=== PATIENT | male | born 1960 | race Caucasian/White ===

== ENCOUNTER 2017-06-24 06:13 | Inpatient (IN) ==
[2017-06-24 06:38] LABS: MANUAL DIFF NEEDED? NO
[2017-06-24 06:49] LABS: BASO% 0.1 % (0.0-0.8); EOS# 0.02 X1000 (0.0-0.7); EOS% 0.2 % (0.0-10.0); HEMATOCRIT 43.1 % (42.0-52.0); HEMOGLOBIN 15.6 g/dL (14.0-18.0); LYMPH# 1.09 X1000 (1.2-3.4); LYMPH% 9.4 % (20.5-51.1); MCH 33.9 PG (27-31); MCHC 36.2 g/dL (33-37); MCV 93.7 FL (81-99); MONO# 1.03 X1000 (0.11-0.59); MONO% 8.9 % (1.7-9.3); MPV 9.4 FL (7.4-10.4); NEUT% 81.4 % (42.2-75.2); PLT 179 X1000 (130-400)
[2017-06-24 07:09] LABS: AGAP 20; ALBUMIN 4.3 g/dL (3.5-5.0); ALKALINE PHOSPHATASE 90 U/L (32-122); AMYLASE 41 U/L (20-200); BUN 20 mg/dL (8-22); CALCIUM 9.6 mg/dL (8.8-10.2); CHLORIDE 86 mmol/L (98-107); COSMO 271; GOT 34 U/L (10-34); GPT 33 U/L (10-44); LIPASE 36 U/L (13-60); POTASSIUM 4.1 mmol/L (3.5-5.1); SODIUM 130 mmol/L (136-145); TCO2 24 mmol/L (25-35); TOTAL BILIRUBIN 1.54 mg/dL (0.20-1.00); TOTAL PROTEIN 7.8 g/dL (6.3-8.3)
[2017-06-24] MEDS ORDERED: NS 1,000 ML IV ONE ×2 (08:53→10:02)
[2017-06-24] MEDS ORDERED: ZOFRAN IV ONE (09:32)
[2017-06-24] MEDS ORDERED: MORPHINE IV ONE (09:32)
[2017-06-24] MEDS ORDERED: ZOFRAN IV PRN (10:02)
[2017-06-24] MEDS ORDERED: MORPHINE IV PRN (10:02)
[2017-06-24] MEDS ORDERED: APRESOLINE IV PRN (11:57)
[2017-06-24 13:49] LABS: URINE CULTURE NEEDED? NO; URINE MICRO REVIEW NEEDED? NO; URINE SOURCE CLEAN CATCH
[2017-06-24 13:56] LABS: BILIRUBIN URINE NEGATIVE (NEGATIVE); BLOOD URINE SMALL (NEGATIVE); COLOR YELLOW; GLUCOSE URINE 100 mg/dL (NEGATIVE); LEUKOCYTES URINE NEGATIVE (NEGATIVE); NITRITE URINE NEGATIVE (NEGATIVE); PROTEIN URINE 300 mg/dL (NEGATIVE); SP GRAVITY URINE 1.024; TURBIDITY URINE CLEAR (CLEAR); UROBILINOGEN URINE 2 mg/dL (NORMAL)
[2017-06-24 13:57] LABS: UR EPITHELIAL CELLS <10 /HPF (<10); URINE BACTERIA NEGATIVE /HPF; URINE RBC <10 /HPF (<10); URINE WBC <10 /HPF (<10)
[2017-06-24] MEDS: HUMULIN R SUBQ SCH ×2 (14:00→18:49)
[2017-06-25] MEDS: HUMULIN R SUBQ SCH ×9 (03:26→21:19)
[2017-06-25 06:06] LABS: MANUAL DIFF NEEDED? NO
[2017-06-25 06:11] LABS: BASO% 0.2 % (0.0-0.8); EOS# 0.33 X1000 (0.0-0.7); EOS% 3.7 % (0.0-10.0); HEMATOCRIT 40.1 % (42.0-52.0); HEMOGLOBIN 13.6 g/dL (14.0-18.0); LYMPH# 0.91 X1000 (1.2-3.4); LYMPH% 10.3 % (20.5-51.1); MCH 32.9 PG (27-31); MCHC 33.9 g/dL (33-37); MCV 96.9 FL (81-99); MONO# 0.95 X1000 (0.11-0.59); MONO% 10.8 % (1.7-9.3); MPV 9.1 FL (7.4-10.4); PLT 165 X1000 (130-400); RBC 4.14 XMIL (4.7-6.1)
[2017-06-25 06:40] LABS: AGAP 14; ALBUMIN 3.9 g/dL (3.5-5.0); ALKALINE PHOSPHATASE 84 U/L (32-122); BUN 23 mg/dL (8-22); CALCIUM 8.5 mg/dL (8.8-10.2); CHLORIDE 96 mmol/L (98-107); COSMO 279; GOT 33 U/L (10-34); GPT 29 U/L (10-44); POTASSIUM 3.9 mmol/L (3.5-5.1); SODIUM 136 mmol/L (136-145); TCO2 26 mmol/L (25-35); TOTAL BILIRUBIN 1.53 mg/dL (0.20-1.00); TOTAL PROTEIN 7.8 g/dL (6.3-8.3)
[2017-06-26] MEDS: HUMULIN R SUBQ SCH ×2 (04:16→07:54)
[2017-06-26 07:52] VITALS: BP 165/91
== END 2017-06-26 11:09 | disposition home or self-care (01) ==
LOC: ED 06:13 → SURHOLD 06:14 → 4N 15:35
PROVIDERS: ADMIT Surgery; ATTEND Surgery